=== PATIENT | male | born 1960 | race Caucasian/White ===

== ENCOUNTER 2018-01-25 16:42 | Emergency (ER) | END 2018-01-25 21:21 | disposition home or self-care (01) ==

== ENCOUNTER 2018-02-01 13:22 | Emergency (ER) | END 2018-02-01 16:41 | disposition home or self-care (01) ==

== ENCOUNTER 2018-04-22 14:35 | Inpatient (IN) | END 2018-04-24 16:46 | disposition home or self-care (01) | DRG 313 ==

== ENCOUNTER 2018-05-25 11:31 | Emergency (ER) | END 2018-05-25 13:13 | disposition left against medical advice (07) ==

== ENCOUNTER 2018-07-26 17:39 | Emergency (ER) | END 2018-07-26 21:42 | disposition left against medical advice (07) ==

== ENCOUNTER 2018-07-27 11:52 | Emergency (ER) | END 2018-07-27 14:56 | disposition home or self-care (01) ==

== ENCOUNTER 2018-11-26 16:25 | Emergency (ER) | payer OTHER ==
[~2018-11-26] VITALS: Wt 83.5 kg
[~2018-11-26 16:25] MED LIST: ASPI-817 PO; BENA40TA56 PO; CLOP75TA27 PO; DULA0.75 SQ; EZET10TA31 PO; GEMF600T8 PO; INSU100I7 SQ; METF100010 PO; METO-429 PO; MULT-896 PO; MULTI PO; OMEG-135 PO; POLY17PO6 PO; THIA250T7 PO; VITA-110 PO
[2018-11-26] MEDS ORDERED: ACETAMINOPHEN 325 MG TAB PO ONE (19:30)
[2018-11-26] MEDS ORDERED: NITROGLYCERIN 2% 1 GM OINT PKT TD STA (19:30)
[2018-11-26] MEDS ORDERED: NITROGLYCERIN (SL) 0.4 MG TAB SL PRN ×2 (19:30→21:00)
[2018-11-26] MEDS: METOPROLOL 5 MG INJ IV SCH ×3 (19:56→20:38)
[2018-11-26] MEDS: ASPIRIN 81 MG TAB PO STA ×2 (19:56→20:05)
[2018-11-26] MEDS ORDERED: KETOROLAC 30 MG INJ IV STA (20:07)
[2018-11-26] MEDS ORDERED: niCARdipine-NS 0.1MG/ML DRIP 200 ML IV STA (20:24)
--- NOTE | 2018-11-26 20:55 | HP ---
Date/Time of Note Date/Time of Note DATE: 11/26/18 TIME: 20:55 Assessment/Plan Lines/Catheters IV Catheter Type (from [facility]): Saline Lock Assessment/Plan Hospital Course Patient left AMA, Against Medical Advice, before I was able to see him. Result Diagram: 11/26/18194211/26/181942 Results 24hrs Laboratory Tests Test 11/26/18 19:43 White Blood Count 5.3 Red Blood Count 4.25 L Hemoglobin 13.4 L Hematocrit 38.1 L Mean Corpuscular Volume 89.6 Mean Corpuscular Hemoglobin 31.5 Mean Corpuscular Hemoglobin Concent 35.2 Red Cell Distribution Width 12.4 Platelet Count 252 Mean Platelet Volume 10.0 Immature Granulocytes % 0.400 Neutrophils % 49.5 Lymphocytes % 35.5 Monocytes % 10.2 Eosinophils % 3.8 Basophils % 0.6 Nucleated Red Blood Cells % 0.0 Immature Granulocytes # 0.020 Neutrophils # 2.6 Lymphocytes # 1.9 Monocytes # 0.5 Eosinophils # 0.2 Basophils # 0.0 Nucleated Red Blood Cells # 0.0 Sodium Level 138 Potassium Level 4.2 Chloride Level 106 Carbon Dioxide Level 20 L Anion Gap 12 Blood Urea Nitrogen 21 H Creatinine 1.00 Est Glomerular Filtrat Rate mL/min > 60 Glucose Level 228 H Calcium Level 10.6 H Troponin I < 0.012 HPI/ROS Admit Date/Time Admit Date/Time Hx of Present Illness patient left AMA before I was able to see patient. PMH/Family/Social Past Medical History Medications Current Medications Nitroglycerin (Nitroglycerin (Sl Tab) 0.4 Mg) 1 tab Q5M UP TO 3 DOSES PRN SL .CHEST PAIN; Start 11/26/18 at 19:30 Nicardipine HCl 200 ml @ 50 mls/hr ONCE STAT IV Last administered on 11/26/18at 20:47; Admin Dose 50 MLS/HR; Start 11/26/18 at 20:24; Stop 11/27/18 at 00:23 Aspirin (Halfprin) 81 mg DAILY PO ; Start 11/27/18 at 09:00; Status UNV Clopidogrel Bisulfate (plaVIX) 75 mg DAILY PO ; Start 11/27/18 at 09:00; Status UNV EZETIMIBE (Zetia) 10 mg HS PO ; Start 11/26/18 at 21:00; Status UNV Gemfibrozil (Lopid) 600 mg BID PO ; Start 11/26/18 at 21:00; Status UNV Multivitamins Therapeutic (Theragran) 1 tab DAILY PO ; Start 11/27/18 at 09:00; Status UNV Polyethylene Glycol (Miralax) 17 gm DAILY PO ; Start 11/27/18 at 09:00; Status UNV Vitamin E (Vitamin E) 1,000 unit DAILY PO ; Start 11/27/18 at 09:00; Status UNV Miscellaneous Information 1 each DAILY PO ; Start 11/27/18 at 09:00; Status UNV Miscellaneous Information 1 each DAILY PO ; Start 11/27/18 at 09:00; Status UNV Miscellaneous Information 250 mg DAILY PO ; Start 11/27/18 at 09:00; Status UNV Coded Allergies: No Known Allergy (Unverified , 07/27/18) Past Surgical History angiogram Family History Significant Family History: no pertinent family hx Social History Smoking Status: Never smoker Exam/Review of Systems Vital Signs Vitals Vital Signs Date Temp Pulse Resp B/P (MAP) Pulse Ox O2 O2 Flow FiO2 Time Delivery Rate 11/26/18 80 16 180/140 98 Room Air 20:08 (153) 11/26/18 98.8 16:28 THO ORANTES Nov 26, 2018 20:55
[2018-11-26] MEDS ORDERED: EZETIMIBE 10 MG TAB PO SCH (21:00)
[2018-11-26] MEDS ORDERED: ONDANSETRON 4 MG INJ IV PRN (21:00)
[2018-11-26] MEDS ORDERED: HYDROCODONE/APAP (5/325) TAB PO PRN (21:00)
[2018-11-26] MEDS ORDERED: GEMFIBROZIL 600 MG TAB PO SCH (21:00)
[2018-11-26] MEDS ORDERED: morphine 2 MG INJ IV PRN (21:00)
[2018-11-26] MEDS ORDERED: DOCUSATE SODIUM 100 MG CAP PO PRN (21:00)
[2018-11-26] MEDS ORDERED: BISACODYL (EC) 5 MG TAB PO PRN (21:00)
[2018-11-26] MEDS ORDERED: niCARdipine 25 MG in SOD CHLORIDE 0.9% 240 ML IV SCH (21:00)
[2018-11-26] MEDS ORDERED: ACETAMINOPHEN 650MG/20.3ML CUP PO PRN (21:00)
[2018-11-26 21:05] VITALS: PULSE 75; RESP 16
--- NOTE | 2018-11-26 21:08 | ERD ---
ER Documentation Chief Complaint Chief Complaint CHEST PRESSURE AND PAIN FOR THE PAST FEW DAYS. VOMITING. SALVADOR AND HIGH BP HPI Patient is a 50-year-old male with stroke, hypertension, diabetes who presents with chest pain. He said that it started on Monday and feels like "heartburn". The patient said that he felt awful and that he had a "blood pressure headache". He said that he is taking his blood pressure medicines as directed. The chest pain is midsternal and constant. Upon review of old medical records this is the patient's ninth visit to the ER since 2018. Review of the emergency department information exchange system shows 18 visits to 2 separate emergency departments over the past 1 year. He does have a primary doctor a Dr. Anne and his pet sitter is Dr. Flaherty. ROS All systems reviewed and are negative except as per history of present illness. Medications Home Meds Active Scripts Polyethylene Glycol* (Miralax*) 17 Gm Powd.pack, 17 GM PO DAILY, #7 Prov:TEAGAN HUFF MD 07/27/18 Reported Medications Aspirin* (Aspirin* EC) 81 Mg Tablet.dr, 81 MG PO DAILY, TAB 07/27/18 Ezetimibe* (Zetia*) 10 Mg Tablet, 10 MG PO HS, TAB 01/25/18 Multivit-Min/FA/Lycopen/Lutein (Centrum Silver Men Tablet) 1 Each Tablet, 1 EACH PO DAILY, TAB 01/25/18 Thiamine* (Vitamin B-1*) 250 Mg Tablet, 250 MG PO DAILY, TAB 01/25/18 Vitamin E* (Vitamin E*) 1,000 Unit Capsule, 1000 UNIT PO DAILY, CAP 01/25/18 [place]-3 Fatty Acids/Fish Oil (Fish Oil 1,000 mg Capsule) 1 Each Capsule, 1 EACH PO DAILY, CAP 01/25/18 Multivitamins* (Theragran*) 1 Tab Tab, 1 TAB PO DAILY, TAB 01/25/18 Insulin Lispro Protamin/Lispro (Humalog Mix 75-25 Kwikpen) 100 Unit/1 Ml Insuln.pen, 0 SQ BID INJECT 22 UNITS-QAM AND 22 UNITS-QPM 01/25/18 Metoprolol Tartrate* (Lopressor*) 50 Mg Tab, 50 MG PO BID, #60 TAB 01/25/18 Gemfibrozil* (Gemfibrozil*) 600 Mg Tablet, 600 MG PO BID, TAB 01/25/18 Clopidogrel Bisulfate (Clopidogrel) 75 Mg Tablet, 75 MG PO DAILY, #30 TAB 01/25/18 Dulaglutide (Trulicity) 0.75 Mg/0.5 Ml Pen.injctr, 0.75 MG SQ Q JUDITH 01/25/18 Benazepril Hcl* (Benazepril Hcl*) 40 Mg Tablet, 40 MG PO DAILY, #30 TAB 01/25/18 Metformin Hcl* (Metformin Hcl*) 1,000 Mg Tablet, 1000 MG PO WITH BREAKFAST DINNE, #60 TAB 01/25/18 Allergies Allergies: Coded Allergies: No Known Allergy (Unverified , 07/27/18) PMhx/Soc History of Surgery: Yes (Appendix, Gallbladder, Shoulder X4, Gastrocnemius repai, Colon, Angio brai) Anesthesia Reaction: No Hx Neurological Disorder: Yes (CVA X5 (Last 10/29)) Hx Respiratory Disorders: No Hx Cardiac Disorders: Yes (HTN) Hx Psychiatric Problems: No Hx Miscellaneous Medical Probl: Yes (KIDNEY STONES) Hx Alcohol Use: Yes (Beer 2 week) Hx Substance Use: No Hx Tobacco Use: No Smoking Status: Never smoker FmHx Family History: diabetes Physical Exam Vitals Vital Signs Date Temp Pulse Resp B/P (MAP) Pulse Ox O2 O2 Flow FiO2 Time Delivery Rate 11/26/18 80 16 180/140 98 Room Air 20:08 (153) 11/26/18 81 16 184/128 97 Room Air 19:48 (146) 11/26/18 98.8 95 20 231/145 98 16:28 (173) Physical Exam Const: Mild distress Head: Atraumatic Eyes: Normal Conjunctiva ENT: Normal External Ears, Nose and Mouth. Neck: Full range of motion. No meningismus. Resp: Clear to auscultation bilaterally Cardio: Regular rate and rhythm, no murmurs Abd: Soft, non tender, non distended. Normal bowel sounds Skin: No petechiae or rashes Back: No midline or flank tenderness Ext: No cyanosis, or edema Neur: Awake and alert, cranial nerves II through XII intact, strength is 5 out of 5 in all 4 extremities, no slurred speech Psych: Normal Mood and Affect Result Diagram: 11/26/18194211/26/183 Results 24 hrs Laboratory Tests Test 11/26/18 19:43 White Blood Count 5.3 10^3/ul Red Blood Count 4.25 10^6/ul Hemoglobin 13.4 g/dl Hematocrit 38.1 % Mean Corpuscular Volume 89.6 fl Mean Corpuscular Hemoglobin 31.5 pg Mean Corpuscular Hemoglobin Concent 35.2 g/dl Red Cell Distribution Width 12.4 % Platelet Count 252 10^3/UL Mean Platelet Volume 10.0 fl Immature Granulocytes % 0.400 % Neutrophils % 49.5 % Lymphocytes % 35.5 % Monocytes % 10.2 % Eosinophils % 3.8 % Basophils % 0.6 % Nucleated Red Blood Cells % 0.0 /100WBC Immature Granulocytes # 0.020 10^3/ul Neutrophils # 2.6 10^3/ul Lymphocytes # 1.9 10^3/ul Monocytes # 0.5 10^3/ul Eosinophils # 0.2 10^3/ul Basophils # 0.0 10^3/ul Nucleated Red Blood Cells # 0.0 10^3/ul Sodium Level 138 mmol/L Potassium Level 4.2 mmol/L Chloride Level 106 mmol/L Carbon Dioxide Level 20 mmol/L Anion Gap 12 Blood Urea Nitrogen 21 mg/dl Creatinine 1.00 mg/dl Est Glomerular Filtrat Rate mL/min > 60 mL/min Glucose Level 228 mg/dl Calcium Level 10.6 mg/dl Troponin I < 0.012 ng/ml Current Medications Medications Dose Sig/Tyron Start Time Status Last (Trade) Ordered Route PRN Stop Time Admin Dose Reason Admin Aspirin 162 mg ONCE STAT 11/26/18 DC (Aspirin) PO 19:30 11/26/18 19:31 1 inch ONCE STAT 11/26/18 DC 11/26/18 Nitroglycerin TD 19:30 19:56 11/26/18 19:31 (Nitroglyceri n 2% Oint) 1 tab Q5M UP TO 3 11/26/18 Nitroglycerin DOSES PRN 19:30 SL .CHEST (Nitroglyceri PAIN n (Sl Tab) 0.4 Mg) Metoprolol 5 mg Q5M IV 11/26/18 DC 11/26/18 Tartrate 19:30 20:38 (Lopressor) 11/26/18 19:41 650 mg ONCE ONCE 11/26/18 DC 11/26/18 Acetaminophen PO 19:30 19:56 (Tylenol 11/26/18 19:31 Tab) Ketorolac 30 mg ONCE STAT 11/26/18 DC 11/26/18 Tromethamine IV 20:07 20:12 (Toradol) 11/26/18 20:08 Nicardipine 200 ml @ ONCE STAT 11/26/18 11/26/18 HCl 50 mls/hr IV 20:24 20:47 11/27/18 00:23 Aspirin 81 mg DAILY PO 11/27/18 UNV (Halfprin) 09:00 Clopidogrel 75 mg DAILY PO 11/27/18 UNV Bisulfate 09:00 (plaVIX) EZETIMIBE 10 mg HS PO 11/26/18 UNV (Zetia) 21:00 Gemfibrozil 600 mg BID PO 11/26/18 UNV (Lopid) 21:00 1 tab DAILY PO 11/27/18 UNV Multivitamins 09:00 Therapeutic (Theragran) 17 gm DAILY PO 11/27/18 UNV Polyethylene 09:00 Glycol (Miralax) Vitamin E 1,000 unit DAILY PO 11/27/18 UNV (Vitamin E) 09:00 1 each DAILY PO 11/27/18 UNV Miscellaneous 09:00 Information 1 each DAILY PO 11/27/18 UNV Miscellaneous 09:00 Information 250 mg DAILY PO 11/27/18 UNV Miscellaneous 09:00 Information Ondansetron 4 mg Q6H PRN 11/26/18 UNV HCl (Zofran IV NAUSEA 21:00 Inj) AND/OR VOMITING 1 tab Q5M PRN 11/26/18 UNV Nitroglycerin SL CHEST 21:00 PAIN (Nitroglyceri n (Sl Tab) 0.4 Mg) 650 mg Q6H PRN 11/26/18 UNV Acetaminophen PO PAIN 21:00 (Tylenol LEVEL 1-3 OR Liquid) FEVER 1 tab Q6H PRN 11/26/18 UNV Acetaminophen PO PAIN 21:00 / LEVEL 4-6 Hydrocodone Bitart ([place] (5/325)) Morphine 2 mg Q4H PRN 11/26/18 UNV Sulfate IV PAIN 21:00 (morphine) LEVEL 7-10 Docusate 100 mg Q12H PRN 11/26/18 UNV Sodium PO 21:00 (Colace) CONSTIPATION Bisacodyl 5 mg DAILY PRN 11/26/18 UNV (Dulcolax) PO 21:00 CONSTIPATION 40 mg DAILY@06 11/27/18 UNV Pantoprazole IV 06:00 (Protonix Iv) Nicardipine 250 ml @ TITRATE IV 11/26/18 UNV HCl 25 50 mls/hr 21:00 mg/Sodium Chloride Procedures/MDM EKG read by me: Rate/Rhythm: Regular rate and rhythm at a normal rate Intervals: Normal Impression: No evidence of ischemia or arrhythmia Chest x-ray read by radiology. Patient is an 58-year-old male with multiple cardiac risk factors who presents with chest pain and headache. I was concerned for hypertensive emergency as his initial blood pressure was approximately 240/120. The patient was given metoprolol IV x2 and his blood pressure was still 180/115. Therefore nicardipine drip was started. He is requesting hydromorphone and I do believe there may be an element of drug-seeking behavior so I have held off on narcotic medicines. He was given aspirin, nitroglycerin, Tylenol, and Toradol for pain. The patient will be admitted to the ICU to the care of Dr. Maynard from the panel team. I doubt pneumonia, pneumothorax, pulmonary positive, or aortic dissection. However I am concerned about potential acute coronary syndrome. Critical Care: Time: 35 minutes excluding all billable procedures. Treatments/Evaluations: Close monitoring and treatment of unstable vital signs, cardiorespiratory, and neurologic status, while maintaining tight balance of fluid, respiratory, and cardiac interventions. Departure Diagnosis: Primary Impression: Hypertensive emergency Additional Impressions: Headache Headache type: unspecified Headache chronicity pattern: acute headache Intractability: intractable Qualified Codes: R51 - Headache Chest pain Chest pain type: unspecified Qualified Codes: R07.9 - Chest pain, unspecified Condition: Serious KELLEY MUKHERJEE MD Nov 26, 2018 21:08
[2018-11-26 21:33] VITALS: BP 140/92
[2018-11-27] MEDS ORDERED: PANTOPRAZOLE (EC) 40 MG TAB PO SCH (06:00)
[2018-11-27] MEDS ORDERED: CLOPIDOGREL 75 MG TAB PO SCH (09:00)
[2018-11-27] MEDS ORDERED: POLYETHYLENE GLYCOL 17 GM PACKET PO SCH (09:00)
[2018-11-27] MEDS ORDERED: ASPIRIN (EC) 81 MG TAB PO SCH (09:00)
[2018-11-27] MEDS ORDERED: VITAMIN E 1,000 UNIT CAP PO SCH (09:00)
[2018-11-27] MEDS ORDERED: THIAMINE 100 MG TAB PO SCH (09:00)
[2018-11-27] MEDS ORDERED: FISH OIL 1,000 MG CAP PO SCH (09:00)
[2018-11-27] MEDS ORDERED: MULTIVITAMINS THERAPEUTIC TAB PO SCH (09:00)
== END 2018-11-26 22:00 | disposition left against medical advice (07) ==
LOC: E/R 16:25 → CANBEDREQ 11-28 19:53
DX: I16.1 Hypertensive emergency (principal); R51 Headache; I10 Essential (primary) hypertension; E11.9 Type 2 diabetes mellitus without complications; Z79.01 Long term (current) use of anticoagulants; Z79.4 Long term (current) use of insulin; Z79.82 Long term (current) use of aspirin; Z86.73 Personal history of transient ischemic attack (TIA), and cerebral infarction without residual deficits
CPT/HCPCS: 36415; 71045; 80048; 83036; 84484; 85025; 93005; 96365; 96375; J1885; Z7502; Z7610

== ENCOUNTER 2019-05-07 11:16 | Emergency (ER) | payer OTHER ==
[~2019-05-07] VITALS: Ht 170.2 cm; Wt 83.7 kg
[~2019-05-07 11:16] MED LIST changes: +ACET500C5 PO; +ASPI-535 PO; +CIPR500T4 PO; +CRES20 PO; +CYCL10TA7 PO; +DULA1.5P SQ; +EZET10TA19 PO; -EZET10TA31 PO; +HYDR-3980 PO; +IBUP-1542 PO; +METR500T PO; +NOVO7030 SC; +ONDA4TAB14 PO; +ROSU20TA31 ORAL; +TAMS-14 PO; -THIA250T7 PO; +THIA250T8 PO
[2019-05-07 11:25] VITALS: Ht 170.2 cm; Wt 83.7 kg
[2019-05-07] MEDS ORDERED: SOD CHLORIDE 0.9% 840 ML IV ONE (12:00)
[2019-05-07] MEDS ORDERED: KETOROLAC 30 MG INJ IV STA (13:42)
[2019-05-07] MEDS ORDERED: HYDROCODONE/APAP (10/325) TAB PO ONE (14:00)
[2019-05-07] MEDS ORDERED: INSULIN LISPRO 100 UNIT/ML VIAL SC ONE (14:00)
[2019-05-07] MEDS ORDERED: ACCU-CHEK XX ONE (14:00)
[2019-05-07 14:38] VITALS: BP 147/91; PULSE 84; RESP 18
== END 2019-05-07 14:40 | disposition home or self-care (01) ==
LOC: E/R 11:16
DX: E11.65 Type 2 diabetes mellitus with hyperglycemia (principal); I10 Essential (primary) hypertension; Z79.02 Long term (current) use of antithrombotics/antiplatelets; Z79.4 Long term (current) use of insulin; Z79.82 Long term (current) use of aspirin; Z86.73 Personal history of transient ischemic attack (TIA), and cerebral infarction without residual deficits; Z87.891 Personal history of nicotine dependence
CPT/HCPCS: 36415; 80048; 81001; 82803; 82962; 83735; 84100; 85025; 96372; J1815; J1885; J7030; Z7502; Z7610

== ENCOUNTER 2019-06-11 15:16 | Emergency (ER) | payer OTHER ==
[~2019-06-11] VITALS: Ht 160 cm; Wt 80.0 kg
[~2019-06-11 15:16] MED LIST changes: -ASPI-817 PO; -CYCL10TA7 PO; -DULA0.75 SQ; -IBUP-1542 PO; -INSU100I7 SQ; -MULT-896 PO; -MULTI PO; -OMEG-135 PO; -POLY17PO6 PO; -THIA250T8 PO; -VITA-110 PO
[2019-06-11 15:22] VITALS: Ht 160 cm; Wt 80.0 kg
[2019-06-11] MEDS ORDERED: ONDANSETRON 4 MG INJ IV STA (15:50)
[2019-06-11] MEDS ORDERED: SOD CHLORIDE 0.9% 1,000 ML IV STA (15:50)
[2019-06-11] MEDS ORDERED: NICARDipine HCL 30 MG CAPSULE PO ONE (16:00)
[2019-06-11] MEDS ORDERED: HYDROmorphONE 1 MG/ML SYG IV STA (16:09)
[2019-06-11] MEDS ORDERED: IOHEXOL 300MG/ML 150 ML BTL ONE (16:51)
[2019-06-11] MEDS ORDERED: SOD CHLORIDE 0.9% 100 ML ONE (16:51)
[2019-06-11 18:38] VITALS: BP 165/98; PULSE 78; RESP 18
== END 2019-06-11 18:45 | disposition home or self-care (01) ==
LOC: E/R 15:16
DX: K85.90 Acute pancreatitis without necrosis or infection, unspecified (principal); I10 Essential (primary) hypertension; Z79.01 Long term (current) use of anticoagulants; Z79.4 Long term (current) use of insulin; Z79.82 Long term (current) use of aspirin; Z86.73 Personal history of transient ischemic attack (TIA), and cerebral infarction without residual deficits
CPT/HCPCS: 36415; 74177; 80053; 81001; 83690; 85025; 96361; 96374; 96375; J1170; J2405; J7030; Q9967; Z7502; Z7610